=== PATIENT | male | born 1995 | race Asian ===

== ENCOUNTER 2017-06-19 19:48 | Emergency (ER) | payer OTHER ==
[2017-06-19 19:53] VITALS: BP 155/76; PULSE 84; RESP 16; TEMP 98.4; O2SAT 97
--- NOTE | 2017-06-19 20:24 | EDPHY ---
H & P Time Seen by Provider: 06/19/17 20:18 HPI/ROS: CHIEF COMPLAINT: Left knee pain HISTORY OF PRESENT ILLNESS: Patient was lifting weights and thinks he injured his left knee 5 weeks ago. Over the course of the last month he says he feels his knee is clicking with some restricted motion and then when he can move it a little bit he will feel it release and he can fully straighten it. He says he is here because his friend was here to get his knees checked out after a scooter accident any thought he would come and get his knee checked out at the same time. REVIEW OF SYSTEMS: No weakness or numbness in the foot PAST MEDICAL HISTORY: Negative General Appearance: Alert and conversant, cooperative. Full range of motion of the left knee. No bony tenderness and no evidence of effusion. Stable to varus and valgus stress, Denise's negative, no joint line tenderness. Emergency Department course/MDM: Possible meniscus injury. Has normal function in the emergency department. Symptomatic treatment and orthopedic follow-up. Smoking Status: Never smoked Constitutional: Initial Vital Signs Temperature (C) 36.9 C 06/19/17 19:51 Heart Rate 84 06/19/17 19:51 Respiratory Rate 16 06/19/17 19:51 Blood Pressure 155/76 H 06/19/17 19:51 O2 Sat (%) 97 06/19/17 19:51 O2 Delivery Mode Room Air Allergies/Adverse Reactions: No Known Allergies Allergy (Unverified 06/19/17 19:52) MDM/Departure - Depart Disposition: Home, Routine, Self-Care Clinical Impression: Left knee pain Qualifiers: Chronicity: acute Qualified Code(s): M25.562 - Pain in left knee Condition: Good Instructions: Knee Pain (ED) Additional Instructions: Possible meniscus injury. Please follow up with Orthopedics in the next 2 weeks. Referrals: Mary Abad MD [Medical Doctor] - As per Instructions
== END 2017-06-19 20:39 | disposition home or self-care (01) ==
DX: M25.562 Pain in left knee (principal)